=== PATIENT | male | born 1935 | race Caucasian/White ===

== ENCOUNTER 2016-08-07 16:13 | Emergency (ER) | payer MEDICARE ==
[~2016-08-07] VITALS: Ht 170.2 cm; Wt 70.0 kg
[~2016-08-07 16:13] MED LIST: IOHEXOL-350 100 ML BOTTLE ONE; SODIUM CHLORIDE 0.9% 10ML VIAL ONE
[2016-08-07] MEDS ORDERED: LISI2.5T47 PO (16:19)
[2016-08-07 16:54] LABS: CHLORIDE 104 mEq/L (98-107); INDEX HEMOLYSI 1 (1-3); INDEX ICTERIC 1 (1-4); INDEX LIPEMIC 1 (1-3)
[2016-08-07 16:55] LABS: BASOPHILS % 0.5 % (0.0-2.0); DIFFERENTIAL COMMENT 1; EOSINOPHILS % 7.6 % (0.0-5.0); HEMATOCRIT. 44.1 % (42.0-52.0); HEMOGLOBIN. 14.8 g/dL (14.0-18.0); LYMPHOCYTES % 14.3 % (20.0-50.0); MEAN CORPUSCULAR HGB CONC 33.5 g/dL (31.0-37.0); MEAN CORPUSCULAR VOLUME 92.4 fL (80.0-94.0); MEAN PLATELET VOLUME 8.7 fl (7.4-10.4); MONOCYTES % 14.8 % (2.0-8.0); NEUTROPHILS % 62.8 % (40.0-76.0); PLATELET 213 x1000/uL (130-400); RED BLOOD CELL COUNT 4.77 mill/uL (4.7-6.1); RED CELL DISTRIBUTION WIDTH 14.8 % (11.6-14.6)
[2016-08-07 16:57] LABS: ALBUMIN 3.9 g/dL (3.4-5.0); ANION GAP 11; CALCIUM 8.5 mg/dL (8.5-10.1); CARBON DIOXIDE 27 mEq/L (21-32); LIPASE 221 IU/L (73-393); UREA NITROGEN BLOOD 26 mg/dL (7-21)
[2016-08-07 16:59] LABS: D-DIMER 0.2 mg/L FEU (<0.50); INR 1.1; PARTIAL THROMBOPLASTIN TIME 32.4 sec (24.0-34.0); PROTHROMBIN TIME 11.1 sec
[2016-08-07 17:04] LABS: ALANINE AMINOTRANSFERASE 26 IU/L (13-61); NT PRO B-TYPE NATRIURETIC PEP 37 pg/mL (5-125); TROPONIN I < 0.02 ng/mL (0.00-0.04); eGFR 49 mL/min (>60)
[2016-08-07 18:43] LABS: CLARITY URINE CLEAR (CLEAR); COLOR URINE YELLOW (YELLOW); GLUCOSE URINE NEGATIVE (NEGATIVE); KETONES URINE NEGATIVE (NEGATIVE); LEUKOCYTE ESTERASE URINE 1+ (NEGATIVE); NITRITE URINE NEGATIVE (NEGATIVE); OCCULT BLOOD URINE NEGATIVE (NEGATIVE); PROTEIN URINE NEGATIVE (NEGATIVE); SPECIFIC GRAVITY URINE 1.024 (1.005-1.030); UROBILINOGEN URINE 0.2 E.U./dL (0.2-1.0)
[2016-08-07 19:09] VITALS: BP 128/92
[2016-08-07 19:23] LABS: RBC URINE 0-2 /hpf (0-2)
[2016-08-07 19:24] LABS: BACTERIA URINE 1+; HYALINE CASTS URINE 0-5 /lpf; SQUAMOUS EPITHELIAL CELL URINE FEW /lpf (RARE/1+)
[2016-08-07 19:25] LABS: MUCUS URINE TRACE /lpf (NONE/TRACE)
== END 2016-08-07 19:50 | disposition left against medical advice (07) ==
LOC: ER 16:14
DX: M54.9 Dorsalgia, unspecified (principal); R07.9 Chest pain, unspecified; I10 Essential (primary) hypertension
CPT/HCPCS: 36415; 71010; 71275; 80053; 81001; 83690; 83880; 84443; 84484; 85025; 85379; 85610; 85730; 93005; 99285; A4216; Q9967